=== PATIENT | male | born 1995 | race Caucasian/White ===

== ENCOUNTER 2016-09-04 14:41 | Emergency (ER) | payer SELFPAY ==
--- NOTE | 2016-09-04 14:54 | EDPHY ---
HPI/HX/ROS/PE/MDM Narrative: CHIEF COMPLAINT: "I couldn't breathe." HPI: This patient is a 20-year-old male who presents to the Emergency Department complaining of worsening shortness of breath over the past 1.5 weeks. He also complains of associated headache, loss of appetite, and generalized malaise over that time as well. He has not identified any exacerbating or alleviating factors for his complaints. He denies fever, chills , nausea, vomiting, or urinary complaints. No pertinent medical history. REVIEW OF SYSTEMS: Aside from elements discussed in the HPI, a comprehensive 10-point review of systems was reviewed and is negative. PMH: Denies. SOCIAL HISTORY: Homeless. PHYSICAL EXAM: General:Patient is alert, in no acute distress. ENT:Eyes are normal to inspection. ENT inspection normal. Neck: Normal inspection. Full range of motion. Respiratory:No respiratory distress. Breath sounds normal bilaterally. Cardiovascular: Regular rate and rhythm. Strong peripheral pulses. Normal cap refill. Abdomen:The abdomen is nontender to palpation. There are no peritoneal signs. There are normal bowel sounds. Back: Normal to inspection. No tenderness to palpation. Skin: Normal color. No rash. Warm and dry. Extremities: Normal appearance. Full range of motion. Neuro: Oriented x3. Normal motor function. Normal sensory function. ED Course: This normally healthy 20-year-old homeless male presents with complaint of worsening dyspnea over the past 1.5 weeks. At time of presentation, he is resting comfortably. RR 16, O2 Sat 84% on RA. His lungs are clear to auscultation on exam. Will proceed with breathing treatment and chest x-ray. 3ml IH DuoNeb administered for complaint of dyspnea. X-ray of the chest indicates bronchitis. I discussed these results with the patient as well as at-home care instructions for him. He understands customary return precautions and reevaluation to follow-up with [facility]. He expresses agreement to this and will be discharged home in good condition. - Data Points Imaging Results: Imaging Impressions Chest X-Ray 09/04/16 14:56 Impression: RAD/perihilar bronchitis. Imaging: I viewed and interpreted images myself Medications Given: Discontinued Medications Albuterol/Ipratropium (Duoneb) 3 ml IH EDNOW ONE Stop: 09/04/16 15:29 Last Admin: 09/04/16 15:34 Dose: 3 ml General Time Seen by Provider: 09/04/16 14:50 Initial Vital Signs: Initial Vital Signs Temperature (C) 37.0 C 09/04/16 14:41 Heart Rate 84 09/04/16 14:41 Respiratory Rate 16 09/04/16 14:41 Blood Pressure 111/67 09/04/16 14:41 O2 Sat (%) 94 09/04/16 14:41 O2 Delivery Mode Room Air Allergies/Adverse Reactions: No Known Allergies Allergy (Unverified 02/06/16 11:01) Home Medications: Medication Instructions Recorded NK [No Known Home Meds] 09/04/16 Departure - Departure Disposition: Home, Routine, Self-Care Clinical Impression: Acute bronchitis Qualifiers: Bronchitis organism: other organism Qualified Code(s): J20.8 - Acute bronchitis due to other specified organisms Condition: Good Instructions: Acute Bronchitis (ED) Additional Instructions: 1. Take 600mg Ibuprofen every 6 hours as needed for pain or inflammation. 2. Rest and drink plenty of fluids until your symptoms subside. 3. Follow-up with [facility] if your shortness of breath does not improve in the next 3-5 days. 4. Return to the Emergency Department for worsening shortness of breath, if you cough up blood or have an uncontrollable high fever, if you experience chest pain, or for other serious concerns. Referrals: [facility],. [Clinic] - As per Instructions Report Scribed for: Maxime Miguel Report Scribed by: Vanessa Chavez Date of Report: 09/04/16 Time of Report: 14:53 Physician Review and Approval Statement: Portions of this note were transcribed by an ED scribe. I personally performed the history, physical exam, and medical decision making; and confirm the accuracy of the information in the transcribed note.
[2016-09-04 14:56] VITALS: BP 111/67; RESP 16; TEMP 98.6
[2016-09-04] MEDS ORDERED: IPRATROPIUM/ALBUTEROL 3 ML DEYVIAL IH ONE (15:28)
[2016-09-04 15:48] VITALS: PULSE 91; O2SAT 100
== END 2016-09-04 15:45 | disposition home or self-care (01) ==
LOC: EDUNIT#
DX: J20.8 Acute bronchitis due to other specified organisms (principal)